=== PATIENT | female | born 1965 | race Caucasian/White ===

== ENCOUNTER 2024-05-21 13:54 | Inpatient (IN) | payer MEDICAID, OTHER ==
[~2024-05-21] VITALS: Ht 160 cm; Wt 72.0 kg
[2024-05-21 15:35] LABS: BASOPHILS % (AUTO) 0.7 % (0.0-2.0); EOSINOPHILS % (AUTO) 1.1 % (1.0-6.0); HEMATOCRIT 42.6 % (36-46); HEMOGLOBIN 14.3 g/dL (12.0-16.0); LYMPHOCYTES # (AUTO) 3.3 K/uL (1.0-4.8); LYMPHOCYTES % (AUTO) 29.3 % (22.0-44.0); MEAN CORPUSCULAR HEMOGLOBIN 30.8 pg (26.0-34.0); MEAN CORPUSCULAR HGB CONC 33.5 G/dL (31.0-37.0); MEAN CORPUSCULAR VOLUME 92 fL (80-100); MONOCYTES # (AUTO) 0.8 K/uL (0.1-1.0); MONOCYTES % (AUTO) 6.7 % (2.0-9.0); NEUTROPHILS # (AUTO) 7.1 K/uL (1.8-7.7); NEUTROPHILS % (AUTO) 62.2 % (40.0-70.0); PLATELET COUNT (AUTO) 376 K/uL (150-450); RED BLOOD CELL COUNT(AUTO) 4.63 MIL/uL (4.00-5.20); RED CELL DISTRIBUTION WIDTH 13.5 % (11.5-14.5); WHITE BLOOD COUNT (AUTO) 11.4 K/uL (4.5-11.0)
[2024-05-21 15:45] LABS: COVID AG,FIA SOURCE NASAL SWAB
[2024-05-21 15:45] LABS: ANION GAP 8 mmol/L (8-16); CALCIUM, TOTAL 10.4 mg/dL (8.8-10.5); CARBON DIOXIDE 27 mmol/L (22-29); CHLORIDE 100 mmol/L (98-107); CREATININE 0.64 mg/dL (0.60-1.30); GLOMERULAR FILTR. RATE CALC > 60 mL/min (>60); GLUCOSE,RANDOM 118 mg/dL (70-110); POTASSIUM 3.8 mmol/L (3.5-5.1); SODIUM SERUM 135 mmol/L (136-145); UREA NITROGEN, BLOOD 16 mg/dL (7-18)
[2024-05-21 16:03] LABS: SARS-COV2 (COVID) ANTIGEN,FIA Negative (Negative)
[2024-05-21 16:11] LABS: ALCOHOL, BLOOD (SERUM) < 3 mg/dL (0-10)
[2024-05-21] MEDS ORDERED: HALOPERIDOL LACTATE 5 MG/ML VIAL ONE (17:14)
[2024-05-21] MEDS ORDERED: LORazepam 2 MG/ML VIAL ONE (17:14)
[2024-05-21] MEDS ORDERED: DiphenhydrAMINE HCL 50 MG/ML VIAL ONE (17:15)
[2024-05-21] MEDS: LORazepam 2 MG/ML VIAL IM ONE ×2 (17:24)
[2024-05-21] MEDS: HALOPERIDOL LACTATE 5 MG/ML VIAL IM ONE ×2 (17:24→17:25)
[2024-05-21] MEDS: DiphenhydrAMINE HCL 50 MG/ML VIAL IM ONE ×2 (17:24)
[2024-05-22] MEDS: HALOPERIDOL LACTATE 5 MG/ML VIAL IM ONE (02:10)
[2024-05-22] MEDS: LORazepam 2 MG/ML VIAL IM ONE (02:10)
[2024-05-22] MEDS: DiphenhydrAMINE HCL 50 MG/ML VIAL IM ONE (02:10)
[2024-05-22] MEDS ORDERED: LORazepam 2 MG/ML VIAL IM ONE (09:15)
[2024-05-22 09:25] VITALS: O2SAT 96
[2024-05-22 11:00] VITALS: BP 136/82; PULSE 95; RESP 17; TEMP 98; O2SAT 98
[2024-05-22] MEDS ORDERED: ONDANSETRON 4 MG TABLET PO PRN (13:30)
[2024-05-22] MEDS ORDERED: LOPERAMIDE HCL 2 MG CAPSULE PO PRN (13:30)
[2024-05-22] MEDS ORDERED: PETROLATUM,WHITE 28 GM JELLY TP PRN (13:30)
[2024-05-22] MEDS ORDERED: NICOTINE 14 MG/24 HOUR PATCH TD PRN (13:30)
[2024-05-22] MEDS ORDERED: CloNIDine HCL 0.1 MG TABLET PO PRN (13:30)
[2024-05-22] MEDS ORDERED: MAG HYDROX/ALUMINUM HYD/SIMETH ES 30 ML SUSPENSION UDCUP PO PRN (13:30)
[2024-05-22] MEDS: NICOTINE POLACRILEX 2 MG LOZENGE PO PRN (13:39)
[2024-05-22 15:58] VITALS: RESP 18
[2024-05-22] MEDS ORDERED: GLUCAGON,HUMAN RECOMBINANT 1 MG VIAL IM PRN (16:00)
[2024-05-22] MEDS: IBUPROFEN 400 MG TABLET PO PRN (16:03)
[2024-05-22 17:00] VITALS: RESP 18
[2024-05-22] MEDS: CIPROFLOXACIN HCL 0.2%/HYDROCORT 1% 10 ML OTIC SUSPENSION AS SCH (17:00)
[2024-05-22 17:36] LABS: GLUCOMETER DEV NAME(LOC) BV3S.; GLUCOSE,POINT OF CARE 133 MG/DL (70-110)
[2024-05-22 18:52] VITALS: RESP 18
[2024-05-22] MEDS: ACETAMINOPHEN 325 MG TABLET PO PRN (18:56)
[2024-05-22 20:32] VITALS: BP 130/80; PULSE 88; RESP 18; TEMP 97.5; O2SAT 99
[2024-05-22 20:45] LABS: GLUCOMETER DEV NAME(LOC) BV3S.; GLUCOSE,POINT OF CARE 127 MG/DL (70-110)
[2024-05-23 06:30] LABS: GLUCOMETER DEV NAME(LOC) BV3S.; GLUCOSE,POINT OF CARE 129 MG/DL (70-110)
[2024-05-23 08:12] VITALS: BP 130/76; PULSE 78; RESP 18; TEMP 97.9; O2SAT 99
[2024-05-23] MEDS: CHOLECALCIFEROL (VIT D3) 5,000 [125 MCG] UNITS CAPSULE PO SCH (08:29)
[2024-05-23 09:39] LABS: ALANINE AMINOTRANSFERASE 23 U/L (12-78); ALBUMIN 3.6 g/dL (3.4-5.0); ALKALINE PHOSPHATASE 120 U/L (46-116); ANION GAP 10 mmol/L (8-16); ASPARTATE AMINOTRANSFERASE 26 U/L (15-37); CALCIUM, TOTAL 9.8 mg/dL (8.8-10.5); CARBON DIOXIDE 25 mmol/L (22-29); CHLORIDE 99 mmol/L (98-107); CHOL/HDL RATIO 4.5 (3.9-5.7); CHOLESTEROL 251 mg/dL (131-200); CREATININE 0.69 mg/dL (0.60-1.30); GLOMERULAR FILTR. RATE CALC > 60 mL/min (>60); GLUCOSE,RANDOM 150 mg/dL (70-110); HDL CHOLESTEROL 56 mg/dL (40-60); LDL CHOL (CALC.) 156 mg/dL (0-130); POTASSIUM 3.8 mmol/L (3.5-5.1); SODIUM SERUM 134 mmol/L (136-145); THYROID STIMULATING HORMONE 1.19 uIU/mL (0.36-3.74); TOTAL PROTEIN, SERUM 7.7 g/dL (6.4-8.2); TRIGLYCERIDES 197 mg/dL (15-150); UREA NITROGEN, BLOOD 13 mg/dL (7-18)
[2024-05-23 09:40] LABS: BASOPHILS % (AUTO) 0.4 % (0.0-2.0); EOSINOPHILS % (AUTO) 0.2 % (1.0-6.0); HEMOGLOBIN 14.2 g/dL (12.0-16.0); LYMPHOCYTES # (AUTO) 1.9 K/uL (1.0-4.8); LYMPHOCYTES % (AUTO) 16.6 % (22.0-44.0); MEAN CORPUSCULAR HEMOGLOBIN 31.1 pg (26.0-34.0); MEAN CORPUSCULAR HGB CONC 33.9 G/dL (31.0-37.0); MEAN CORPUSCULAR VOLUME 92 fL (80-100); MONOCYTES # (AUTO) 0.8 K/uL (0.1-1.0); MONOCYTES % (AUTO) 6.9 % (2.0-9.0); NEUTROPHILS # (AUTO) 8.7 K/uL (1.8-7.7); NEUTROPHILS % (AUTO) 75.9 % (40.0-70.0); PLATELET COUNT (AUTO) 404 K/uL (150-450); RED BLOOD CELL COUNT(AUTO) 4.58 MIL/uL (4.00-5.20); RED CELL DISTRIBUTION WIDTH 13.3 % (11.5-14.5); WHITE BLOOD COUNT (AUTO) 11.5 K/uL (4.5-11.0)
[2024-05-23] MEDS: DULoxetine HCL 20 MG CAPSULE PO SCH (10:31)
[2024-05-23 12:01] LABS: GLUCOMETER DEV NAME(LOC) BV3S.; GLUCOSE,POINT OF CARE 131 MG/DL (70-110)
[2024-05-23 14:11] LABS: HEMOGLOBIN A1C 5.4 % (3.8-5.6)
[2024-05-23] MEDS: GABAPENTIN 100 MG CAPSULE PO PRN (17:08)
[2024-05-23] MEDS: TraZODone HCL 100 MG TABLET PO SCH (20:18)
[2024-05-23 20:31] VITALS: BP 154/84; PULSE 103; RESP 18; TEMP 97.3; O2SAT 96
[2024-05-23] MEDS: INSULIN LISPRO 100 UNITS/ML SQ PRN (20:31)
[2024-05-23 21:16] LABS: GLUCOMETER DEV NAME(LOC) BV3S.; GLUCOSE,POINT OF CARE 144 MG/DL (70-110)
[2024-05-23] MEDS: ZOLPIDEM TARTRATE 10 MG TABLET PO PRN (22:14)
[2024-05-24] MEDS: LURASIDONE HCL 20 MG TABLET PO SCH (06:22)
[2024-05-24 06:35] LABS: GLUCOMETER DEV NAME(LOC) BV3S.; GLUCOSE,POINT OF CARE 117 MG/DL (70-110)
[2024-05-24 08:05] VITALS: BP 138/79; PULSE 72; RESP 16; TEMP 97.8; O2SAT 97
[2024-05-24] MEDS: DOCUSATE SODIUM 100 MG CAPSULE PO PRN (09:33)
[2024-05-24 11:51] LABS: GLUCOMETER DEV NAME(LOC) BV3S.; GLUCOSE,POINT OF CARE 122 MG/DL (70-110)
[2024-05-24 16:30] LABS: GLUCOMETER DEV NAME(LOC) BV3S.; GLUCOSE,POINT OF CARE 134 MG/DL (70-110)
[2024-05-24 20:20] VITALS: BP 96/71; PULSE 94; RESP 18; TEMP 98; O2SAT 97
[2024-05-24 21:36] LABS: GLUCOMETER DEV NAME(LOC) BV3S.; GLUCOSE,POINT OF CARE 178 MG/DL (70-110)
[2024-05-25] MEDS: GuaiFENesin/D-METHORPHAN [SUGAR-FREE] 200-20MG/10 ML SYRUP UDCUP PO PRN (00:17)
[2024-05-25] MEDS: HALOPERIDOL 5 MG TABLET PO PRN (00:47)
[2024-05-25 06:35] LABS: GLUCOMETER DEV NAME(LOC) BV3S.; GLUCOSE,POINT OF CARE 123 MG/DL (70-110)
[2024-05-25 08:42] VITALS: BP 103/71; PULSE 112; RESP 17; O2SAT 95
[2024-05-25 10:36] VITALS: RESP 17
[2024-05-25 11:36] VITALS: RESP 17
[2024-05-25 11:45] LABS: GLUCOMETER DEV NAME(LOC) BV3S.; GLUCOSE,POINT OF CARE 154 MG/DL (70-110)
[2024-05-25 20:04] VITALS: BP 115/91; PULSE 110; RESP 18; TEMP 97.1; O2SAT 96
[2024-05-25 21:50] LABS: GLUCOMETER DEV NAME(LOC) BV3S.; GLUCOSE,POINT OF CARE 128 MG/DL (70-110)
[2024-05-26] VITALS (7 sets, daily range): BP systolic 107–109; BP diastolic 75–82; PULSE 101–115; RESP 17–20; TEMP 97–98; O2SAT 96–98
[2024-05-26] MEDS ORDERED: DiphenhydrAMINE HCL 50 MG/ML VIAL ONE (05:02)
[2024-05-26] MEDS ORDERED: LORazepam 2 MG/ML VIAL ONE (05:02)
[2024-05-26] MEDS: DiphenhydrAMINE HCL 50 MG/ML VIAL IM ONE (05:18)
[2024-05-26] MEDS: HALOPERIDOL LACTATE 5 MG/ML VIAL IM ONE (05:19)
[2024-05-26] MEDS: LORazepam 2 MG/ML VIAL IM ONE (05:20)
[2024-05-26] MEDS: LORazepam 2 MG TABLET PO PRN (05:20)
[2024-05-26 16:51] LABS: GLUCOMETER DEV NAME(LOC) BV3S.; GLUCOSE,POINT OF CARE 129 MG/DL (70-110)
[2024-05-26 20:56] LABS: GLUCOMETER DEV NAME(LOC) BV3S.; GLUCOSE,POINT OF CARE 122 MG/DL (70-110)
[2024-05-27 00:52] VITALS: RESP 20
[2024-05-27 02:00] VITALS: RESP 18
[2024-05-27 07:20] LABS: GLUCOMETER DEV NAME(LOC) BV3S.; GLUCOSE,POINT OF CARE 135 MG/DL (70-110)
[2024-05-27 08:00] VITALS: BP 123/90; PULSE 100; RESP 18; TEMP 97.8; O2SAT 96
[2024-05-27] MEDS: MAGNESIUM HYDROXIDE SUSPENSION 30 ML UDCUP PO PRN (08:55)
[2024-05-27 12:10] LABS: GLUCOMETER DEV NAME(LOC) BV3S.; GLUCOSE,POINT OF CARE 142 MG/DL (70-110)
[2024-05-27 13:31] VITALS: RESP 18
[2024-05-27 14:31] VITALS: RESP 18
[2024-05-27 17:01] LABS: GLUCOMETER DEV NAME(LOC) BV3S.; GLUCOSE,POINT OF CARE 140 MG/DL (70-110)
[2024-05-27 20:00] VITALS: BP 118/94; PULSE 115; RESP 18; TEMP 96.7; O2SAT 96
[2024-05-28 02:39] VITALS: BP 115/82; PULSE 119; RESP 17; TEMP 97.4; O2SAT 98
[2024-05-28 06:35] LABS: GLUCOMETER DEV NAME(LOC) BV3S.; GLUCOSE,POINT OF CARE 122 MG/DL (70-110)
[2024-05-28 08:18] VITALS: BP 107/80; PULSE 96; RESP 16; TEMP 98; O2SAT 98
[2024-05-28 12:25] LABS: GLUCOMETER DEV NAME(LOC) BV3S.; GLUCOSE,POINT OF CARE 181 MG/DL (70-110)
[2024-05-28] MEDS: INFLUENZA VIRUS VACCINE TVS (6MO+) 2024-25/PF 45 MCG/0.5 ML SYRINGE IM. ONE (14:05)
[2024-05-28 15:57] VITALS: RESP 16
[2024-05-28 16:57] VITALS: RESP 16
[2024-05-28 17:31] VITALS: BP 121/90; PULSE 119; RESP 18
[2024-05-28 17:41] LABS: GLUCOMETER DEV NAME(LOC) BV3S.; GLUCOSE,POINT OF CARE 162 MG/DL (70-110)
[2024-05-28 20:47] VITALS: BP 110/91; PULSE 58; RESP 17; TEMP 97
[2024-05-29 01:04] VITALS: RESP 20
[2024-05-29 02:00] VITALS: RESP 18
[2024-05-29 08:27] VITALS: BP 124/95; PULSE 78; RESP 18; TEMP 96.9; O2SAT 98
[2024-05-29 17:20] LABS: GLUCOMETER DEV NAME(LOC) BV3S.; GLUCOSE,POINT OF CARE 170 MG/DL (70-110)
[2024-05-29 20:22] VITALS: BP 130/82; PULSE 89; RESP 16; TEMP 97.1; O2SAT 98
[2024-05-29 21:35] LABS: GLUCOMETER DEV NAME(LOC) BV3S.; GLUCOSE,POINT OF CARE 119 MG/DL (70-110)
[2024-05-30 08:31] VITALS: RESP 16
[2024-05-30 10:16] VITALS: RESP 16
[2024-05-30 12:00] LABS: GLUCOMETER DEV NAME(LOC) BV3S.; GLUCOSE,POINT OF CARE 122 MG/DL (70-110)
[2024-05-30 17:15] LABS: GLUCOMETER DEV NAME(LOC) BV3S.; GLUCOSE,POINT OF CARE 132 MG/DL (70-110)
[2024-05-30 18:12] VITALS: RESP 17
[2024-05-30 19:12] VITALS: RESP 16
[2024-05-30] MEDS ORDERED: ZINC OXIDE 40%/COD LIVER OIL 57 GM PASTE TP PRN (20:15)
[2024-05-30 20:42] VITALS: BP 127/84; PULSE 68; RESP 16; TEMP 96.9; O2SAT 98
[2024-05-31 06:20] LABS: GLUCOMETER DEV NAME(LOC) BV3S.; GLUCOSE,POINT OF CARE 143 MG/DL (70-110)
[2024-05-31 08:14] VITALS: RESP 16
[2024-05-31 12:06] LABS: GLUCOMETER DEV NAME(LOC) BV3S.; GLUCOSE,POINT OF CARE 146 MG/DL (70-110)
[2024-05-31 16:41] LABS: GLUCOMETER DEV NAME(LOC) BV3S.; GLUCOSE,POINT OF CARE 126 MG/DL (70-110)
[2024-05-31 20:45] LABS: GLUCOMETER DEV NAME(LOC) BV3S.; GLUCOSE,POINT OF CARE 132 MG/DL (70-110)
[2024-05-31 22:57] VITALS: BP 114/79; PULSE 110; RESP 18; TEMP 97.1; O2SAT 95
[2024-06-01 06:25] LABS: GLUCOMETER DEV NAME(LOC) BV3S.; GLUCOSE,POINT OF CARE 122 MG/DL (70-110)
[2024-06-01 09:00] VITALS: BP 112/86; PULSE 115; RESP 18; TEMP 97; O2SAT 96
[2024-06-01 11:45] LABS: GLUCOMETER DEV NAME(LOC) BV3S.; GLUCOSE,POINT OF CARE 134 MG/DL (70-110)
[2024-06-01 16:30] LABS: GLUCOMETER DEV NAME(LOC) BV3S.; GLUCOSE,POINT OF CARE 197 MG/DL (70-110)
[2024-06-01] MEDS: PNEUMOCOCCAL VACCINE POLYVALENT 0.5 ML SYRINGE [PPSV23] IM. ONE (16:49)
[2024-06-01 17:31] VITALS: BP 130/81; PULSE 118; RESP 18; TEMP 97.4; O2SAT 97
[2024-06-01 20:06] VITALS: BP 126/87; PULSE 113; RESP 18; TEMP 97.1; O2SAT 98
[2024-06-01 20:40] LABS: GLUCOMETER DEV NAME(LOC) BV3S.; GLUCOSE,POINT OF CARE 132 MG/DL (70-110)
[2024-06-02 06:35] LABS: GLUCOMETER DEV NAME(LOC) BV3S.; GLUCOSE,POINT OF CARE 141 MG/DL (70-110)
[2024-06-02 09:13] VITALS: BP 138/82; PULSE 85; RESP 17; TEMP 97.3; O2SAT 97
[2024-06-02 11:03] LABS: BASOPHILS % (AUTO) 0.5 % (0.0-2.0); EOSINOPHILS % (AUTO) 0.2 % (1.0-6.0); HEMATOCRIT 35.5 % (36-46); HEMOGLOBIN 11.7 g/dL (12.0-16.0); LYMPHOCYTES # (AUTO) 1.5 K/uL (1.0-4.8); LYMPHOCYTES % (AUTO) 13.2 % (22.0-44.0); MEAN CORPUSCULAR HEMOGLOBIN 30.3 pg (26.0-34.0); MEAN CORPUSCULAR VOLUME 92 fL (80-100); MONOCYTES # (AUTO) 0.9 K/uL (0.1-1.0); MONOCYTES % (AUTO) 8.2 % (2.0-9.0); NEUTROPHILS # (AUTO) 8.7 K/uL (1.8-7.7); NEUTROPHILS % (AUTO) 77.9 % (40.0-70.0); PLATELET COUNT (AUTO) 424 K/uL (150-450); RED BLOOD CELL COUNT(AUTO) 3.85 MIL/uL (4.00-5.20); RED CELL DISTRIBUTION WIDTH 14.1 % (11.5-14.5); WHITE BLOOD COUNT (AUTO) 11.2 K/uL (4.5-11.0)
[2024-06-02 11:44] LABS: ALANINE AMINOTRANSFERASE 125 U/L (12-78); ALBUMIN 2.9 g/dL (3.4-5.0); ALKALINE PHOSPHATASE 195 U/L (46-116); ANION GAP 11 mmol/L (8-16); ASPARTATE AMINOTRANSFERASE 46 U/L (15-37); CALCIUM, TOTAL 9.8 mg/dL (8.8-10.5); CARBON DIOXIDE 24 mmol/L (22-29); CHLORIDE 97 mmol/L (98-107); CREATININE 0.82 mg/dL (0.60-1.30); GLOMERULAR FILTR. RATE CALC > 60 mL/min (>60); GLUCOSE,RANDOM 119 mg/dL (70-110); SODIUM SERUM 132 mmol/L (136-145); TOTAL PROTEIN, SERUM 6.7 g/dL (6.4-8.2); UREA NITROGEN, BLOOD 45 mg/dL (7-18)
[2024-06-02 11:45] LABS: GLUCOMETER DEV NAME(LOC) BV3S.; GLUCOSE,POINT OF CARE 132 MG/DL (70-110)
[2024-06-02] MEDS: ALBUTEROL SULFATE HFA 90 MCG/PUFF 8 GM INHALER IH PRN (12:22)
[2024-06-02 16:35] LABS: GLUCOMETER DEV NAME(LOC) BV3S.; GLUCOSE,POINT OF CARE 126 MG/DL (70-110)
[2024-06-02] MEDS: ZINC OXIDE 40%/COD LIVER OIL 57 GM PASTE TP SCH (20:00)
[2024-06-02] MEDS: ATORVASTATIN CALCIUM 20 MG TABLET PO SCH (20:18)
[2024-06-02 20:30] LABS: GLUCOMETER DEV NAME(LOC) BV3S.; GLUCOSE,POINT OF CARE 152 MG/DL (70-110)
[2024-06-03] MEDS: MEGESTROL ACETATE 400 MG/10 ML SUSPENSION UDCUP PO SCH (08:31)
[2024-06-03 09:19] VITALS: BP 115/76; PULSE 98; RESP 17; TEMP 97; O2SAT 97
[2024-06-03 11:46] LABS: GLUCOMETER DEV NAME(LOC) BV3S.; GLUCOSE,POINT OF CARE 144 MG/DL (70-110)
[2024-06-03 17:11] LABS: GLUCOMETER DEV NAME(LOC) BV3S.; GLUCOSE,POINT OF CARE 139 MG/DL (70-110)
[2024-06-03 20:10] VITALS: BP 153/68; PULSE 119; RESP 18; TEMP 96.3; O2SAT 95
[2024-06-04 08:44] VITALS: RESP 16
[2024-06-04 11:20] LABS: GLUCOMETER DEV NAME(LOC) BV3S.; GLUCOSE,POINT OF CARE 173 MG/DL (70-110)
[2024-06-04 16:17] VITALS: BP 123/59; PULSE 64; RESP 16; TEMP 97.1; O2SAT 95
[2024-06-04 17:05] LABS: GLUCOMETER DEV NAME(LOC) BV3S.; GLUCOSE,POINT OF CARE 131 MG/DL (70-110)
[2024-06-05 06:30] LABS: GLUCOMETER DEV NAME(LOC) BV3S.; GLUCOSE,POINT OF CARE 165 MG/DL (70-110)
[2024-06-05 08:37] VITALS: BP 127/84; PULSE 100; RESP 16; TEMP 97.6; O2SAT 96
[2024-06-05 11:51] LABS: GLUCOMETER DEV NAME(LOC) BV3S.; GLUCOSE,POINT OF CARE 189 MG/DL (70-110)
[2024-06-05 15:53] VITALS: RESP 16
[2024-06-05 16:53] VITALS: RESP 18
[2024-06-05 17:06] LABS: GLUCOMETER DEV NAME(LOC) BV3S.; GLUCOSE,POINT OF CARE 133 MG/DL (70-110)
[2024-06-05 20:05] VITALS: RESP 18
[2024-06-05 21:15] LABS: GLUCOMETER DEV NAME(LOC) BV3S.; GLUCOSE,POINT OF CARE 148 MG/DL (70-110)
[2024-06-06 06:21] LABS: GLUCOMETER DEV NAME(LOC) BV3S.; GLUCOSE,POINT OF CARE 137 MG/DL (70-110)
[2024-06-06 09:08] VITALS: BP 119/74; PULSE 67; RESP 17; TEMP 96; O2SAT 95
[2024-06-06 11:46] LABS: GLUCOMETER DEV NAME(LOC) BV3S.; GLUCOSE,POINT OF CARE 138 MG/DL (70-110)
[2024-06-06 16:41] LABS: GLUCOMETER DEV NAME(LOC) BV3S.; GLUCOSE,POINT OF CARE 131 MG/DL (70-110)
[2024-06-06 20:03] VITALS: BP 140/77; PULSE 66; RESP 18; TEMP 96.6; O2SAT 99
[2024-06-06 23:21] LABS: GLUCOMETER DEV NAME(LOC) BV3S.; GLUCOSE,POINT OF CARE 138 MG/DL (70-110)
[2024-06-07 06:30] LABS: GLUCOMETER DEV NAME(LOC) BV3S.; GLUCOSE,POINT OF CARE 135 MG/DL (70-110)
[2024-06-07 08:04] VITALS: BP 121/80; PULSE 113; RESP 16; TEMP 97.6; O2SAT 96
[2024-06-07 09:00] VITALS: PULSE 76; RESP 16; O2SAT 98
[2024-06-07] MEDS ORDERED: MEGESTROL ACETATE 400 MG/10 ML SUSPENSION UDCUP PO SCH (10:00)
[2024-06-07 11:45] LABS: GLUCOMETER DEV NAME(LOC) BV3S.; GLUCOSE,POINT OF CARE 171 MG/DL (70-110)
[2024-06-07 17:10] LABS: GLUCOMETER DEV NAME(LOC) BV3S.; GLUCOSE,POINT OF CARE 172 MG/DL (70-110)
[2024-06-07 20:50] LABS: GLUCOMETER DEV NAME(LOC) BV3S.; GLUCOSE,POINT OF CARE 163 MG/DL (70-110)
[2024-06-08] MEDS: LURASIDONE HCL 20 MG TABLET PO SCH (06:13)
[2024-06-08 06:50] LABS: GLUCOMETER DEV NAME(LOC) BV3S.; GLUCOSE,POINT OF CARE 144 MG/DL (70-110)
[2024-06-08 08:23] VITALS: BP 147/89; PULSE 100; RESP 17; TEMP 97; O2SAT 94
[2024-06-08] MEDS: DULoxetine HCL 20 MG CAPSULE PO SCH (10:23)
[2024-06-08 11:45] LABS: GLUCOMETER DEV NAME(LOC) BV3S.; GLUCOSE,POINT OF CARE 131 MG/DL (70-110)
== END 2024-06-08 19:48 | disposition short-term general hospital (02) | DRG 751 ==
LOC: EMS 13:54 → B3A 05-22 11:24
PROVIDERS: ADMIT Psychiatry & Neurology Child & Adolescent Psychiatry; ATTEND Psychiatry & Neurology Child & Adolescent Psychiatry
PROC: GZHZZZZ Group Psychotherapy (ICD-10-PCS; principal; 2024-05-24)
PROC: GZ56ZZZ Individual Psychotherapy, Supportive (ICD-10-PCS; 2024-05-24)
DX: F32.2 Major depressive disorder, single episode, severe without psychotic features (principal); R56.9 Unspecified convulsions; F23 Brief psychotic disorder; E11.65 Type 2 diabetes mellitus with hyperglycemia; E78.5 Hyperlipidemia, unspecified; E87.6 Hypokalemia; D72.829 Elevated white blood cell count, unspecified; F17.210 Nicotine dependence, cigarettes, uncomplicated; Z20.822 Contact with and (suspected) exposure to COVID-19; F32.9 Major depressive disorder, single episode, unspecified; F41.9 Anxiety disorder, unspecified; G47.00 Insomnia, unspecified; I10 Essential (primary) hypertension; Z79.899 Other long term (current) drug therapy; Z91.81 History of falling; M25.511 Pain in right shoulder
CPT/HCPCS: 80048; 80053; 80061; 82962; 83036; 84443; 85025; 87081; 87481; 90686; 90732; 99285; G0480; J1200; J1630; J2060; J3535